=== PATIENT | female | born 1980 | race Caucasian/White ===

== ENCOUNTER 2022-08-12 15:05 | Observation (INO) | payer OTHER ==
[~2022-08-12] VITALS: Ht 165.1 cm; Wt 48.1 kg
[2022-08-12 15:17] VITALS: BP 145/72
--- NOTE | 2022-08-12 15:33 | NUR ---
42/F WALKED IN C/O RIGHT HAND NUMBNESS ONSET 6 DAYS ACCOMPANIED BY TINGLING ONSET 4 DAYS. DENIES FALL OR TRAUMA. AAO4, AMBULATORY, VITALS STABLE, EQUAL HEMATOLOGY ONCOLOGY CONSULTANT STRENGTH. STATES HAD ONE EPISODEOF BLURRY VISION FOR 10 MIN DURATION IN AM TODAY. DENIES NAUSEA OR VOMITING. PMH: DENIES
[2022-08-12 15:59] LABS: EOSINOPHILS # (AUTO) 0.1 K/uL (0-0.4); EOSINOPHILS % (AUTO) 1.4 % (0.0-4.0); LYMPHOCYTES # (AUTO) 1.4 K/uL (2.5-16.5); LYMPHOCYTES % (AUTO) 36.6 % (20.5-51.1); MEAN CORPUSCULAR HEMOGLOBIN 15 pg (27-31); MEAN CORPUSCULAR HGB CONC 27 g/dL (33-37); MEAN CORPUSCULAR VOLUME 54.8 fL (80-94); MONOCYTES # (AUTO) 0.2 K/uL (0.8-1.0); MONOCYTES % (AUTO) 6.1 % (1.7-9.3); NEUTROPHILS # (AUTO) 2.1 K/uL (1.8-7.7); NEUTROPHILS % (AUTO) 54.9 % (42.2-75.2); PLATELET COUNT (AUTO) 237 K/uL (140-450); RED BLOOD CELL COUNT(AUTO) 2.73 MIL/uL (4.20-5.40); RED CELL DISTRIBUTION WIDTH 21.4 % (11.6-13.7); WHITE BLOOD COUNT (AUTO) 3.9 K/uL (4.8-10.8)
[2022-08-12 16:20] LABS: ALBUMIN 3.8 g/dL (3.4-5.0); ANION GAP 13.1 (8-16); CARBON DIOXIDE 26.2 mmol/L (21-32); CREATININE 0.8 mg/dL (0.6-1.3); POTASSIUM 3.3 mmol/L (3.5-5.1); TOTAL BILIRUBIN 0.7 mg/dL (0.0-1.0)
--- NOTE | 2022-08-12 16:39 | NUR ---
URINE COLLECTED. IV ESTABLISHED ON LEFT AC 20G. REPEAT CBC DRAWN AND SENT TO LAB. EKG DONE AT BEDSIDE
[2022-08-12 16:40] LABS: BASOPHILS # (AUTO) 0.1 K/uL (0.00-0.22); BASOPHILS % (AUTO) 1.2 % (0.0-2.0); EOSINOPHILS % (AUTO) 0.9 % (0.0-4.0); LYMPHOCYTES # (AUTO) 1.7 K/uL (2.5-16.5); LYMPHOCYTES % (AUTO) 37.6 % (20.5-51.1); MEAN CORPUSCULAR HEMOGLOBIN 15 pg (27-31); MEAN CORPUSCULAR HGB CONC 27 g/dL (33-37); MEAN CORPUSCULAR VOLUME 54.4 fL (80-94); MONOCYTES # (AUTO) 0.3 K/uL (0.8-1.0); MONOCYTES % (AUTO) 5.9 % (1.7-9.3); NEUTROPHILS # (AUTO) 2.5 K/uL (1.8-7.7); NEUTROPHILS % (AUTO) 54.4 % (42.2-75.2); PLATELET COUNT (AUTO) 249 K/uL (140-450); RED BLOOD CELL COUNT(AUTO) 2.69 MIL/uL (4.20-5.40); RED CELL DISTRIBUTION WIDTH 21.3 % (11.6-13.7); WHITE BLOOD COUNT (AUTO) 4.6 K/uL (4.8-10.8)
[2022-08-12 16:42] LABS: HEMATOCRIT 14.6 % (36-48)
--- NOTE | 2022-08-12 16:43 | NUR ---
LORA COLLECTED. URINE COLLECTED
--- NOTE | 2022-08-12 17:50 | NUR ---
Consent signed per agreeing to administration of blood. Blood has been type and crossmatched. Blood sent from blood bank. Information on unit of blood checked against patient wristband at bedside by two nurses. All information matches. Patient or responsible alliance party informed of potential complications associated with blood transfusion. Informed of possible transfusion reaction symptoms. Aware of need to notify nurse at once of itching, shortness of breath, flushing, feeling of impending doom, or other symptoms not previously present. Vital signs taken within 5 minutes prior to initiation of transfusion. RN will remain with patient for first 15 minutes of transfusion at which time vital signs will be re-assessed.
[2022-08-12] MEDS ORDERED: LORazepam 2 MG/ML VIAL IVP PRN (18:00)
[2022-08-12] MEDS ORDERED: HYDROcodone/APAP 5/325 MG 1 TAB TAB PO PRN (18:00)
[2022-08-12] MEDS ORDERED: ONDANSETRON 4 MG/2 ML VIAL IVP PRN (18:00)
[2022-08-12] MEDS ORDERED: ACETAMINOPHEN 325 MG TAB PO PRN (18:00)
--- NOTE | 2022-08-12 18:06 | NUR ---
spoke with supervisor case loading yary for clinical info.
--- NOTE | 2022-08-12 18:09 | NUR ---
15 min post transfusion note: vitals stable, no reaction observed, increased rate from 80mls/hr to 200mls/hr. pt continuously on cardiac monitor technician.
--- NOTE | 2022-08-12 19:23 | NUR ---
GAVE REPORT TO DINA FLORIAN.
--- NOTE | 2022-08-12 19:25 | NUR ---
ASSUMED CARE OF PT AT THIS TIME. PT IN POSITION OF COMFORT. DENIES ANY PAIN OR NEEDS. BLOOD CURRENTLY INFUSING. VSS. PT UPDATED ON POC WITH FULL RETURNED VERBAL UNDERSTANDING. AWAITING BED ASSIGNEMENT. WILL CONTINUE TO MONITOR.
--- NOTE | 2022-08-12 19:30 | NUR ---
ATTMEPTED TO CALL REPORT. NO ANSWER AT THIS TIME.
--- NOTE | 2022-08-12 19:55 | NUR ---
ATTEMPTED TO CALL REPORT. NO ANSWER
--- NOTE | 2022-08-12 20:20 | NUR ---
REPORT CALLED TO ALBERTO FLORIAN WITH FULL RETURNED VERBAL UNDERSTANDING. PT GOING TO 119B
--- NOTE | 2022-08-13 01:11 | NUR ---
PATIENT TO ROOM 119-B AWAKE ALERT NO C/O UP TO BATHROOM VOIDED AMBULATES WELL. HAS 20 GA IN LEFT AC. PATIENT TO FLUSH. TEMP 97.9 LUNGS CLEAR SAT 100%. SECOND UNIT OF PRBC. STARTED 003 DONOR # [id number] . NO C/O OF PAIN NO DISTRESS NOTED.
[2022-08-13 04:00] VITALS: BP 120/55
--- NOTE | 2022-08-13 06:38 | NUR ---
PATIENT RECEIVED 2ND UNIT OF SANDRA 0035 FINISH 0320 DONOR #[id number]. EMMETT 3RD UNIT 0455 UNIT # [id number]
--- NOTE | 2022-08-13 07:43 | NUR ---
RECEIVED THE REPORT FROM THE NIGHT NURSE, PT IS AWAKE BLOOD TRANSFUSION INFUSING. DISCUSSED POC, NO SOB.[id number]
[2022-08-13 08:00] VITALS: BP 107/54
[2022-08-13] MEDS ORDERED: MAG SULF 2000 MG/WATER PREMIX 50 ML IV PRN (08:40)
[2022-08-13] MEDS ORDERED: KCL 20 MEQ/WATER INJ PREMIX 200 ML IV PRN (08:40)
[2022-08-13] MEDS ORDERED: MAGNESIUM OXIDE 400 MG TAB PO PRN (08:40)
[2022-08-13] MEDS ORDERED: POTASSIUM CHLORIDE 10 MEQ TABER PO PRN (08:40)
[2022-08-13] MEDS: SODIUM FERRIC GLUCONATE 125 MG in NACL 0.9% 100 ML IV SCH ×3 (09:04→09:16)
[2022-08-13 10:27] LABS: ALBUMIN 3.3 g/dL (3.4-5.0); ANION GAP 12.9 (8-16); CREATININE 0.8 mg/dL (0.6-1.3); POTASSIUM 3.9 mmol/L (3.5-5.1); TOTAL BILIRUBIN 0.8 mg/dL (0.0-1.0)
[2022-08-13 10:29] LABS: BASOPHILS # (AUTO) 0.1 K/uL (0.00-0.22); BASOPHILS % (AUTO) 1.2 % (0.0-2.0); EOSINOPHILS # (AUTO) 0.1 K/uL (0-0.4); EOSINOPHILS % (AUTO) 1.2 % (0.0-4.0); HEMATOCRIT 23.9 % (36-48); HEMOGLOBIN 7.2 g/dL (12.0-16.0); LYMPHOCYTES % (AUTO) 22.8 % (20.5-51.1); MEAN CORPUSCULAR HEMOGLOBIN 20 pg (27-31); MEAN CORPUSCULAR HGB CONC 30 g/dL (33-37); MEAN CORPUSCULAR VOLUME 66.8 fL (80-94); MONOCYTES # (AUTO) 0.4 K/uL (0.8-1.0); MONOCYTES % (AUTO) 9.5 % (1.7-9.3); NEUTROPHILS # (AUTO) 2.8 K/uL (1.8-7.7); NEUTROPHILS % (AUTO) 65.3 % (42.2-75.2); PLATELET COUNT (AUTO) 224 K/uL (140-450); RED BLOOD CELL COUNT(AUTO) 3.58 MIL/uL (4.20-5.40); RED CELL DISTRIBUTION WIDTH 33.6 % (11.6-13.7); WHITE BLOOD COUNT (AUTO) 4.3 K/uL (4.8-10.8)
[2022-08-13 12:00] VITALS: BP 133/82
--- NOTE | 2022-08-13 14:08 | NUR ---
PATIENT HAS BEEN SCREENED AND CATEGORIZED LOW NUTRITION RISK. PATIENT WILL BE SEEN WITHIN 7 DAYS OF ADMISSION. 08/19/22 REVIEWED BY KELLY PINK RD
--- NOTE | 2022-08-13 14:25 | NUR ---
DC PLANNING SW MET WITH PT AT BEDSIDE TO COMPLETE ASSESSMENT. PATIENT REPORTS RESIDING IN A SINGLE STORY HOME WITH FAMILY (CHILDREN & ) AT THE ADDRESS LISTED ON FILE. PATIENT IDENTIFIED LONG SANTOS,MOM, AND JUAN CERVANTES, , EMERGENCY CONTACT. PATIENT REPORTS NOT MEETING WITH PCP NEEDED, LAST VISIT 1 YR AGO. SW SPOKE WITH PATIENT ABOUT THE IMPORTANCE OF FOLLOW UP/PREVENTATIVE CARE. PATIENT REPORTS NOT TAKING MEDIATION AT THIS TIME AND DENIES BARRIERS IN ACCESS TO MEDICATION, IF NEEDED. PATIENT REPORTS PICKING UP MEDICATION FROM [facility] ON [address] [facility], WHEN NEEDED. PATIENT REPORTS BEING INDEPENDENT IN ALL ACTIVITIES AND DENIES USE OF DME. PATIENT COMPLETES ALL ADL'S INDEPENDENTLY. PT DENIES MH/SA HX. PATIENT DENIES HX OF DIABETES. PATIENT REPORTS ADEQUATE FOOD SOURCE AT HOME AND REPORTS RECEIVING [employer] BENEFITS OF 682/MONTHLY. PATIENT HAS ADEQUATE FRIEND AND FAMILY SUPPORT. PATIENT REPORTS DC PLAN IS TO RETURN HOME WITH FATHER PROVIDING TRANSPORTATION. SW INQUIRED ON RESOURCES NEEDED, PATIENT DECLINED.
[2022-08-13] MEDS ORDERED: FERR-20 PO (15:55)
[2022-08-13 17:23] VITALS: BP 133/82
--- NOTE | 2022-08-13 18:39 | NUR ---
PROVIDED DISCHARGE INSTRUCTIONS TO PT. REMOVED PTS ID BAND WELL IV, CANULA INTACT. PT LEFT VIA PERSONAL VEHICLE, ACCOMPANIED BY FAMILY.
== END 2022-08-13 18:35 | disposition home or self-care (01) ==
LOC: MED 15:05 → MTU 17:56
PROVIDERS: ADMIT Internal Medicine; ATTEND Internal Medicine
DX: D62 Acute posthemorrhagic anemia (principal); Z20.822 Contact with and (suspected) exposure to COVID-19; N92.0 Excessive and frequent menstruation with regular cycle; R20.2 Paresthesia of skin; Z79.899 Other long term (current) drug therapy
CPT/HCPCS: 36415; 36430; 80053; 83735; 85025; 86886; 86900; 86901; 86920; 87081; 87426; 93005; 96365; 96366; 99291; G0378; J2916; P9016